=== PATIENT | male | born 1960 | race Caucasian/White ===

== ENCOUNTER 2017-07-07 17:12 | Observation (INO) | payer OTHER ==
[~2017-07-07] VITALS: Ht 190.5 cm; Wt 97.5 kg
[2017-07-07 18:17] LABS: BASOPHILS # (AUTO) 0.02 x10^3/uL (0-0.1); BASOPHILS % (AUTO) 0 % (0-1); EOSINOPHILS # (AUTO) 0.08 x10^3/uL (0-0.4); EOSINOPHILS % (AUTO) 1 % (1-7); LYMPHOCYTES # (AUTO) 1.99 x10^3/uL (1-3.4); LYMPHOCYTES % (AUTO) 38 % (22-44); MD NO; MEAN CORPUSCULAR HEMOGLOBIN 31.6 pg (27.5-34.5); MEAN CORPUSCULAR HGB CONC 33.9 g/dL (33.2-36.2); MEAN CORPUSCULAR VOLUME 93.4 fL (81-97); MEAN PLATELET VOLUME 7.3 fL (7.4-10.4); MONOCYTES # (AUTO) 0.51 x10^3/uL (0.2-0.8); MONOCYTES % (AUTO) 10 % (2-9); NEUTROPHILS # (AUTO) 2.69 x10^3/uL (1.8-6.8); NEUTROPHILS % (AUTO) 51 % (42-75); PLATELET COUNT 192 x10^3/uL (130-400); RED BLOOD COUNT 4.66 x10^6/uL (4.38-5.82); RED CELL DISTRIBUTION WIDTH 14.4 % (9.4-14.8)
[2017-07-07 18:23] LABS: ALBUMIN 3.4 g/dL (3.4-5.0); ANION GAP 5 mmol/L (5-15); CALCIUM 8.6 mg/dL (8.5-10.1); CHLORIDE 105 mmol/L (98-107)
[2017-07-07 18:32] LABS: FREE T4 (FREE THYROXINE) 0.75 ng/dL (0.76-1.46)
[2017-07-07 19:01] LABS: AMPHETAMINE SCREEN, URINE Negative (Negative); BARBITURATE SCREEN, URINE Negative (Negative); BENZODIAZEPINE SCREEN, URINE Negative (Negative); CANNABINOID SCREEN, URINE Negative (Negative); COCAINE SCREEN, URINE Negative (Negative); METHADONE SCREEN, URINE Negative (Negative); OPIATE SCREEN, URINE Negative (Negative)
[2017-07-07] MEDS ORDERED: ACETAMINOPHEN 325 MG TABLET PO PRN (21:00)
[2017-07-07] MEDS ORDERED: ONDANSETRON ODT 4 MG PO PRN (21:00)
[2017-07-07] MEDS ORDERED: LEVO137T3 PO (21:39)
[2017-07-07] MEDS ORDERED: SIMV40TA3 PO (21:39)
[2017-07-07] MEDS ORDERED: PREG150C PO (21:39)
[2017-07-07] MEDS ORDERED: FLUO60TA PO (21:39)
[2017-07-07] MEDS ORDERED: ESOM40CA PO (21:39)
[2017-07-07] MEDS ORDERED: QUET400T PO (21:39)
[2017-07-07] MEDS ORDERED: BUDE10.2 IH (21:39)
[2017-07-07] MEDS ORDERED: DIVA500T17 PO ×2 (21:39)
[2017-07-08] MEDS ORDERED: DIVALPROEX 500 MG TAB.ER.24H PO ONE ×2 (03:10→03:15)
[2017-07-08] MEDS ORDERED: QUETIAPINE 200 MG TABLET PO ONE (03:10)
[2017-07-08] MEDS: LEVOTHYROXINE 137 MCG TABLET PO SCH (07:30)
[2017-07-08] MEDS: OMEPRAZOLE 20 MG CAPSULE.DR PO SCH (07:30)
[2017-07-08] MEDS ORDERED: QUETIAPINE 100MG TABLET ONE (08:38)
[2017-07-08] MEDS: PREGABALIN 150 MG CAPSULE PO SCH (08:44)
[2017-07-08] MEDS: FLUOXETINE HCL 20 MG CAPSULE PO SCH (08:44)
[2017-07-08] MEDS: DIVALPROEX 500 MG TAB.ER.24H PO SCH (08:44)
[2017-07-08] MEDS: QUETIAPINE 200 MG TABLET PO SCH (08:45)
[2017-07-08] MEDS ORDERED: FLUTICASONE/VILANTEROL 200-25MCG/INH INH SCH (09:00)
[2017-07-08 16:58] LABS: SALICYLATE LEVEL 3.6 mg/dL (2.8-20.0)
[2017-07-08 16:59] LABS: ACETAMINOPHEN < 2 mcg/mL (10-30)
[2017-07-08 17:31] VITALS: BP 131/93
[2017-07-08 19:47] VITALS: BP 136/89
[2017-07-08] MEDS ORDERED: DIVALPROEX 500 MG TAB.ER.24H PO SCH (21:00)
[2017-07-08] MEDS ORDERED: SIMVASTATIN 40 MG TABLET PO SCH (21:00)
[2017-07-09 07:22] VITALS: BP 136/83
[2017-07-09] MEDS: LEVOTHYROXINE 137 MCG TABLET PO SCH (07:30)
[2017-07-09] MEDS: OMEPRAZOLE 20 MG CAPSULE.DR PO SCH (07:30)
[2017-07-09] MEDS: DIVALPROEX 500 MG TAB.ER.24H PO SCH (09:00)
[2017-07-09] MEDS: PREGABALIN 150 MG CAPSULE PO SCH (09:00)
[2017-07-09] MEDS: FLUOXETINE HCL 20 MG CAPSULE PO SCH (09:00)
[2017-07-09] MEDS: QUETIAPINE 200 MG TABLET PO SCH (09:00)
== END 2017-07-09 18:20 ==
LOC: ED 18:11 → EDIP 18:53 → 2N 07-08 16:56
PROVIDERS: ADMIT Hospitalist; ATTEND Hospitalist
DX: R45.851 Suicidal ideations (principal); R45.850 Homicidal ideations; E03.9 Hypothyroidism, unspecified; F31.9 Bipolar disorder, unspecified; K21.9 Gastro-esophageal reflux disease without esophagitis; F17.200 Nicotine dependence, unspecified, uncomplicated; Z91.5 Personal history of self-harm
CPT/HCPCS: 36415; 80048; 80307; 80329; 82040; 84439; 84443; 85025; 93005; 99285; G0378; G0480